=== PATIENT | male | born 1975 | race Hispanic/Latino ===

== ENCOUNTER 2019-12-31 02:22 | Day surgery (SDC) | payer OTHER, SELFPAY ==
[2019-12-24 14:50] VITALS: BMI 39.0
--- NOTE | 2019-12-30 11:10 | WPDANESEPPF ---
Anes - Initial Pre Proc Eval Procedure: Operation Date: 12/31/19 07:30 Proposed Procedures p Circumcision - Nav West MD s Bilateral Vasectomy - Nav West MD Date/Time: 12/30/19 11:10 Surgeon: Nav West MD Pre Op Diagnosis: Phimosis/Fertility Patient Data Age: 44 Gender: M Height: 5 ft 11 in Weight: 127.01 kg Allergies Allergy/AdvReac Type Severity Reaction Status Date / Time No Known Allergies Allergy Verified 12/31/19 06:56 Home Medications Medication Instructions Recorded Confirmed Type omeprazole 20 mg PO DAILY 12/24/19 12/31/19 History Patient hx anesthesia problems: none Family hx anesthesia problems: none [facility] Past Medical History Medical History (Updated 12/30/19 @ 11:10 by Daryl Cruz MD) GERD (gastroesophageal reflux disease) Morbid obesity Social History Social History (Updated 12/31/19 @ 07:06 by Daryl Cruz MD) Smoking status: Never smoker Alcohol intake: never Anes - Eval Final PreProcedure Day of Procedure 12/30/19 11:10 Patient weight: obese Heart: regular rate and rhythm Lungs: clear to auscultation Airway: Mallampati scale class II Neurological: alert and oriented Last oral intake: >/= 8 hours ASA classification: II Emergent: no Anesthetic plan: proceed Anesthesia type and monitoring: general LMA and standard monitoring Informed Consent: The patient's anesthetic plan and its attendant risks and benefits were discussed with the patient/family/POA. Questions were solicited and answers provided to the satisfaction of the patient/family/POA.
[2019-12-31] VITALS (8 sets, daily range): BP systolic 105–139; BP diastolic 67–91; PULSE 76–94; RESP 10–23; TEMP 36.4–36.6; O2SAT 97–100
[2019-12-31] MEDS: LACTATED RINGERS 1,000 ML 30 ML IV CONT (06:50)
--- NOTE | 2019-12-31 07:27 | WPDHPUPDATE1 ---
History and Physical Update Update Date/Time: 12/31/19 07:27 History and Physical has been reviewed, including an updated exam of the patient. There are NO changes in the patient's condition. Risks, benefits, and alternatives have been discussed and questions answered. Patient agrees to proceed with procedure.
[2019-12-31] MEDS: ceFAZolin 3 GM/D5W 100 ML 100 ML IVPB (07:45)
[2019-12-31] MEDS: BACITRACIN OINTMENT 15 GM TUBE 1 APPLIC TOPICAL (09:05)
--- NOTE | 2019-12-31 09:13 | PM.PROC ---
Procedure Note - Detailed Date of procedure: 12/31/19 Pre-op diagnosis: Phimosis/Fertility Post-op diagnosis: same Description of procedure: Patient was taken to the operative suite and correctly identified. Once anesthesia was obtained he was prepped and draped usual sterile fashion. Bilateral vasectomy most performed 1st by making a small midline transcribed all incision. The vas were isolated with a vas clamp. Segment was excised and the ends were fulgurated ligated and buried. 1% lidocaine with was was used to anesthetize the nerves around the vas. At this point a circumcision was performed. A sleeve technique was done. Hemostasis was achieved using electrocautery. The skin was reapproximated using 3 0 chromic in interrupted fashion. We did a penile block at the termination of the procedure. Patient tolerated procedure well without any complications. Antibiotic ointment and Xeroform gauze was applied. He will follow up in 2-3 weeks time. Anesthesia: GLMA Surgeon: Nav West MD Estimated blood loss (mL): 10 Drains: No Packing: No Pathology: yes Complications: No immediate complications Condition: stable Disposition: PACU
== END 2019-12-31 11:15 | disposition home or self-care (01) ==
PROVIDERS: PCP Family Medicine; Visit Provider Urology
PROC: (CPT 54161; principal; 2019-12-31 07:30)
PROC: (CPT 55250; 2019-12-31 07:30)
DX: N47.1 Phimosis (principal); Z30.2 Encounter for sterilization; N47.7 Other inflammatory diseases of prepuce; K21.9 Gastro-esophageal reflux disease without esophagitis; E66.9 Obesity, unspecified; Z68.38 Body mass index [BMI] 38.0-38.9, adult
CPT/HCPCS: 55250; 54161; 88300; 88304; A9270; J0690; J1100; J2250; J2405; J2704; J3010; J7120